=== PATIENT | female | born 2000 | race Caucasian/White ===

== ENCOUNTER 2024-04-03 04:41 | Emergency (ER) | payer BC, SELFPAY ==
[2024-04-03 04:54] VITALS: BP 128/89
[2024-04-03 04:58] VITALS: BP 128/89
[2024-04-03 05:00] VITALS: BP 126/79
[2024-04-03 05:01] VITALS: BMI 21.5
[2024-04-03 05:46] LABS: % Basophils 1.1 % (0-2); % Immature Granulocytes 0.2 % (0-0.5); % Lymphocytes 39.9 % (20.5-51.1); % Monocytes 8.6 % (1.7-9.3); % Neutrophils 48.2 % (42.2-75.2); Absolute Basophils 0.1 10^3/uL (0-0.2); Absolute Eosinophils 0.1 10^3/uL (0-0.7); Absolute Lymphocytes 1.8 10^3/uL (1.2-3.4); Absolute Monocytes 0.4 10^3/uL (0.1-0.6); Absolute Neutrophils 2.1 10^3/uL (1.4-6.5); Hemoglobin 14.3 g/dL (12.0-16.0); Mean Corp Hgb Conc. 32.5 g/dL (33.0-37.0); Mean Corpuscular Hgb 26.5 pg (27.0-31.0); Mean Corpuscular Volume 81.6 fL (81.0-99.0); Mean Platelet Volume 9.6 fL (7.4-10.4); Nucleated Red Blood Cells % 0 %; Platelet Count 260 10^3/uL (130-400); Red Blood Cell Count 5.39 10^6/uL (4.20-5.40); Red Cell Dist. Width 13.6 % (11.5-14.5); White Blood Cell Count 4.4 10^3/uL (4.8-10.8)
[2024-04-03 06:00] VITALS: BP 112/66
--- NOTE | 2024-04-03 06:22 | ED.GENMED ---
History of Present Illness
General
Chief Complaint: Cardiac Symptoms
Source: patient, significant other and family (Mother)
Exam Limitations: none
Time Seen by Provider: 04/03/24 06:13
Nursing documentation reviewed up to this point in time: agreed with except (Patient reports passing out 4 times)
History of Present Illness
History of Present Illness:
24-year-old female presents emergency department due to multiple syncope episodes at about 3 AM. She states she had multiple drinks. She was up at 3 AM. She has a history of this in the past, and has been diagnosed with POTS.
Past History
Past History
ED Past Medical History: Other (POTS)
Social History
Tobacco: Non-smoker
Alcohol: Binge drinker
Drug: None
Personal:
Living: with family
Review of Systems
Review of Systems
Allergies reviewed?: Yes
All Other Systems: Not applicable
Constitutional: Reports no symptoms
EENT: Reports no symptoms
Respiratory: Reports no symptoms
Cardiac: Reports syncope
ABD/GI: Reports no symptoms
: Reports no symptoms
Musculoskeletal: Reports no symptoms
Skin: Reports no symptoms
Neurological: Reports no symptoms
Endocrine: Reports no symptoms
Hematologic/Lymphatic: Reports no symptoms
Psychiatric: Reports no symptoms
Phy Exam
Physical Exam
Physical Exam:
Physical Exam
General: no apparent distress, not acutely ill
Neck: supple. no meningeal signs. normal posterior pharynx
Heart: s1/s2 tachycardia, no murmur. equal radial
pulses.
HEENT: Pupils equal round reactive to light, EOMI
Lungs: no acute respiratory distress. clear bilaterally
Abdomen: normal bowel sounds. not tender. no CVAT
Neuro: alert and oriented. no focal neurological deficits cranial nerves II through XII intact
Skin: no rash
Psychiatric: well kept. interactive and cooperative
Extremities: no edema. no calf tenderness. negative homans. good distal pulses
Course
Orders/Labs/Results
Orders:
Orders
04/03/24 04:42
Electrocardiogram (*1) Urgent
Reason for Study: Tachycardia
04/03/24 04:43
EKG- Treatment ONCE
04/03/24 05:14
Alcohol Urgent
CMP [Comprehensive Metabolic Panel] Urgent
Complete Blood Count/With Diff Urgent
04/03/24 06:21
Add On- LAB Urgent
Tests Added?: alcohol
Abnormal Lab Results
04/03/24
05:14
WBC 4.4 L 10^3/uL
(4.8-10.8)
MCH 26.5 L pg
(27.0-31.0)
MCHC 32.5 L g/dL
(33.0-37.0)
Sodium 146 H mmol/L
(135-145)
Albumin 5.3 H g/dl
(3.5-5.0)
04/03/24 05:14
04/03/24 05:14
Vital Signs
Initial and Last Documented VS:
Initial Vital Signs
Pulse Resp Pulse Ox
130 14 100
04/03/24 04:53 04/03/24 04:53 04/03/24 04:53
Last Documented Vital Signs
Temp Pulse Resp BP Pulse Ox
98 F 124 16 126/79 100
04/03/24 04:58 04/03/24 05:00 04/03/24 05:00 04/03/24 05:00 04/03/24 05:01
MDM/Problems Addressed
Differential Diagnosis Includes:
Dysrhythmia, alcohol intoxication
MDM/Problems Addressed:
24-year-old female with syncope episode. Sounds with alcohol intoxication. No signs of dysrhythmia. Patient declined to stay for further evaluation, and took out her IV on her own. I applied a dressing, she was discharged. 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
Chronic conditions affecting care: Other (POTS)
*Pulse Oximetry
Patient hypoxic: no
*EKG
Interpreted by ED Provider?: Yes
EKG Intrepretation Date: 04/03/24
EKG Intrepretation Time: 04:47
Interpretation: abnormal
Comparison EKG: no comparison EKG present
Heart Rate: 148
Rate: tachycardiac
Rhythm: sinus tachycardia
[place]: normal axis
Interval: normal interval
QRS Pattern: normal QRS
Ischemia: no ischemia
*Hollock Maker Interpretation
Rate: tachycardiac
Interpretation: abnormal
Heart Rate: 148
Rhythm: sinus tachycardia
*Critical Care Note
Total Time (30-74mins, 75-104mins- exclusive of procedures): Not Applicable
Patient Management
Social determinants of health affecting care: Living situation, Substance abuse (alcohol) and Strong social support
Escalation/DeEscalation of care consider admission/obs:
admit not indicated
ED Attending Note
-
Portions of this chart may have been created with voice recognition software.� Occasional wrong word or��sound alike� substitutions may have occurred due to the inherent limitations of voice recognition software.
Discharge Plan
Departure
Patient Disposition: Home (Routine Discharge)
Date of Disposition: 04/03/24
Time of Disposition: 06:25
Patient with high blood pressure during this ER visit?: Yes
Condition: Good
Discharge Problem:
Sinus tachycardia, Syncope
Interventions
Interventions:
*Risk Screen - Suicide Last Done: 04/03/24 04:45
*General Assessment Last Done: 04/03/24 05:01
*Neglect/Abuse Screening Last Done: 04/03/24 04:45
ED- Fall Risk Assessment Last Done: 04/03/24 05:01
*ED COVID-19 Vaccine History Last Done: 04/03/24 05:01
ED- Pulmonary Assessment Last Done: 04/03/24 05:01
ED- Cardiac Assessment Last Done: 04/03/24 05:01
Discharge Date and Time
Print Language: PALAUAN
[2024-04-03 06:25] LABS: ALT (SGPT) 26 U/L (0-35); AST (SGOT) 28 U/L (14-36); Albumin 5.3 g/dl (3.5-5.0); Alkaline Phosphatase 64 U/L (38-126); Blood Urea Nitrogen 8 mg/dl (7-17); Calcium 9.4 mg/dl (8.4-10.2); Carbon Dioxide 24 mmol/L (22-30); Chloride 106 mmol/L (98-107); Estimated Creatinine Clearance 94 ml/min; Glucose 97 mg/dl (70-99); Potassium 4.3 mmol/L (3.5-5.1); Sodium 146 mmol/L (135-145); Total Bilirubin 0.5 mg/dl (0.2-1.3); Total Protein 7.6 g/dl (6.3-8.2); eGFR > 60.00
[2024-04-03 06:34] LABS: Alcohol 297 mg/dl
== END 2024-04-03 06:50 | disposition home or self-care (01) ==
LOC: EMR 04:41
PROVIDERS: Student in an Organized Health Care Education/Training Program; EMERGENCY PHYSICIAN Emergency Medicine
DX: R00.0 Tachycardia, unspecified (principal); R55 Syncope and collapse; R03.0 Elevated blood-pressure reading, without diagnosis of hypertension
CPT/HCPCS: 99284; 80053; 82077; 85025; 93005